=== PATIENT | female | born 1950 | race Caucasian/White ===

== ENCOUNTER 2024-03-21 14:54 | Emergency (ER) | payer MEDICARE, OTHER, SELFPAY ==
--- NOTE | 2024-03-21 15:52 | ED.SKININJ ---
HPI-Injury
General
Chief Complaint: Skin Surface Trauma
Source: patient
Exam Limitations: none
Time Seen by Provider: 03/21/24 15:48
Nursing documentation reviewed up to this point in time: agreed with
History of Present Illness-Injury
Is this injury a work related problem?: No
Is pt an associate of [facility]?: No
Initial Injury comments:
Patient states she accidentally stabbed her left thumb with a pocketknife while attempting to open a box. Incident occurred yesterday. Today she went to for Td booster but was told they could not give it due to her latex allergy. She tried the
pharmacy and they declined also. Brought self to ED for Tdap.
Past History
Past History
ED Past Medical History: GERD and Other (Varicose Veins, osteoporosis, osteoarthritis, urethritis)
ED Past Surgical History: Cholecystectomy and Orthopedic
Social History
Tobacco: Former smoker
Alcohol: None
Drug: None
Review of Systems
Review of Systems
Allergies reviewed?: Yes
All Other Systems: ROS reviewed and negative except as documented in HPI and ROS
Constitutional: Reports no symptoms
Musculoskeletal: Reports no symptoms
Skin: Reports other (puncture wound left thumb)
Neurological: Reports no symptoms
Psychiatric: Reports no symptoms
Phy Exam
General Physical Exam
General Presentation: well appearing and no apparent distress
General age: appears stated age
General Skin: warm and dry
General Habitus: normal
General Mental: alert
Musculoskeletal Exam
Musculoskeletal Exam: full ROM and neuro vasc intact
Skin Exam
Skin Exam: normal color, warm/dry, no rash and other (Puncture wound left thumb from pocket knife. No evidence of infection however she was placed on antibiotic by . Came to ED for Tdap which was denied by due to latex allergy.)
Psychiatric Exam
Psychiatric Exam: normal mood/affect
Course
Orders/Labs/Results
Orders:
Orders
03/21/24 15:48
Tetanus/Diphth/Acelpertussis [Adacel] 0.5 ml IM .ONCE ONE
Vital Signs
Initial and Last Documented VS:
Initial Vital Signs
Temp Pulse Resp BP Pulse Ox
98 F 78 16 148/78 95
03/21/24 16:15 03/21/24 16:15 03/21/24 16:15 03/21/24 16:15 03/21/24 16:15
Last Documented Vital Signs
Temp Pulse Resp BP Pulse Ox
98 F 78 16 148/78 95
03/21/24 16:15 03/21/24 16:15 03/21/24 16:15 03/21/24 16:15 03/21/24 16:15
*Critical Care Note
Total Time (30-74mins, 75-104mins- exclusive of procedures): Not Applicable
Update Note
Update Note:
PHarmacy called by RN and clearance given for Tdap injection. Patient is aware that latex is on the cap of the Tdap bottle. RN to change out needle before injection.
ED Attending Note
-
Portions of this chart may have been created with voice recognition software.� Occasional wrong word or��sound alike� substitutions may have occurred due to the inherent limitations of voice recognition software.
Discharge Plan
Departure
Patient Disposition: Home (Routine Discharge)
Date of Disposition: 03/21/24
Time of Disposition: 15:57
Patient with high blood pressure during this ER visit?: No
Condition: Good
Covid-19: Not Applicable
Discharge Problem:
Puncture wound, Need for Tdap vaccination
Instructions: Wound Care (DC), Tdap vaccine
Prescriptions:
No Action
lansoprazole [Prevacid] 15 MG capsule,delayed release(DR/EC)
15 mg PO DAILY
Activity Restrictions/Additional Instructions:
Follow up with your family doctor.
Interventions
Interventions:
*Risk Screen - Suicide Last Done: 03/21/24 15:23
*General Assessment Last Done: 03/21/24 15:23
*Neglect/Abuse Screening Last Done: 03/21/24 15:23
ED- Fall Risk Assessment Last Done: 03/21/24 16:14
*ED COVID-19 Vaccine History Last Done: 03/21/24 15:23
*Nursing Disposition Last Done: 03/21/24 16:15
ED-Skin Assessment Last Done: 03/21/24 16:14
Discharge Date and Time
Discharge Date/Time: 03/21/24 16:16
Print Language: UPPER SORBIAN
[2024-03-21] MEDS: ADACEL 0.5 ML IM (16:09)
[2024-03-21 16:15] VITALS: BP 148/78
== END 2024-03-21 16:16 | disposition home or self-care (01) ==
LOC: EMR 14:54
PROVIDERS: EMERGENCY PHYSICIAN Emergency Medicine
DX: S61.032A Puncture wound without foreign body of left thumb without damage to nail, initial encounter (principal); W26.0XXA Contact with knife, initial encounter; Z23 Encounter for immunization; K21.9 Gastro-esophageal reflux disease without esophagitis; Z90.49 Acquired absence of other specified parts of digestive tract; Z87.891 Personal history of nicotine dependence
CPT/HCPCS: 99283; 90471; 90715

== ENCOUNTER 2024-11-11 06:23 | Day surgery (SDC) | payer MEDICARE, OTHER, SELFPAY | END 2024-11-11 10:30 | disposition home or self-care (01) | LOC: GI 06:23 | PROVIDERS: ATTENDING PHYSICIAN Internal Medicine Gastroenterology | DX: R12 Heartburn (principal); R13.10 Dysphagia, unspecified; K31.7 Polyp of stomach and duodenum; K31.89 Other diseases of stomach and duodenum; K29.50 Unspecified chronic gastritis without bleeding; K63.89 Other specified diseases of intestine | CPT/HCPCS: 43239; 88305; 88342 ==